=== PATIENT | male | born 1945 | race Caucasian/White ===

== ENCOUNTER 2021-02-02 13:47 | Inpatient (IN) | payer MEDICARE ==
[~2021-02-02] VITALS: Ht 175.3 cm; Wt 143.2 kg
[~2021-02-02 13:47] MED LIST: AMLO5TAB16 PO; ATOR40TA72 PO; FURO40TA4 PO; HYDR12.55 PO; LISI20TA28 PO; POTA10TA52 PO; WARF3TAB56 PO; WARF4TAB69 PO
[2021-02-02 16:23] LABS: BASOPHILS # (AUTO) 0.1 X10'3 (0-0.2); BASOPHILS % (AUTO) 0.9 % (0-1); EOSINOPHILS # (AUTO) 0.2 X10'3 (0-0.9); EOSINOPHILS % (AUTO) 1.4 % (0-6); LYMPHOCYTES # (AUTO) 1.1 X10'3 (1.1-4.8); LYMPHOCYTES % (AUTO) 8.5 % (21-51); MEAN PLATELET VOLUME 9.2 FL (7.4-10.4); MONOCYTES # (AUTO) 1.3 X10'3 (0-0.9); MONOCYTES % (AUTO) 10.8 % (2-12); NEUTROPHILS # (AUTO) 9.7 X10'3 (1.8-7.7); NEUTROPHILS % (AUTO) 78.4 % (42-75); PLATELET COUNT 211 X10'3 (140-440); WHITE BLOOD COUNT 12.3 X10'3 (4.5-11.0)
[2021-02-02 16:52] LABS: HEMATOCRIT 39.3 % (42.0-52.0); HEMOGLOBIN 12.5 g/dl (14.0-17.9); MEAN CORPUSCULAR HGB CONC 31.9 g/dL (33.0-36.5); MEAN CORPUSCULAR VOLUME 84.6 FL (78-98); RED BLOOD COUNT 4.65 X10'6 (4.70-6.10); RED CELL DISTRIBUTION WIDTH 17.6 % (11.5-14.5)
[2021-02-02 16:57] LABS: ALANINE AMINOTRANSFERASE 32 U/L (12-78); ALBUMIN/GLOBULIN RATIO 0.6 (1.1-1.5); ALKALINE PHOSPHATASE 188 IU/L (46-116); ANION GAP 6 (8-16); ASPARTATE AMINO TRANSFERASE 19 U/L (10-37); BILIRUBIN,TOTAL 0.7 MG/DL (0.1-1.0); BLOOD UREA NITROGEN 37 MG/DL (7-18); BUN/CREATININE RATIO 21.5 (5.4-32.0); CALCIUM 8.9 MG/DL (8.5-10.1); CHLORIDE 109 MMOL/L (99-107); CREATININE 1.72 MG/DL (0.60-1.10); GLUCOSE 139 MG/DL (70-104); SODIUM 148 MMOL/L (135-145); TOTAL CARBON DIOXIDE 32.8 MMOL/L (24-32); TOTAL PROTEIN 7.9 G/DL (6.4-8.2); eGFR 39 ML/MIN
[2021-02-02] MEDS ORDERED: furosemide 10 MG/1 ML 10ml inj IV ONE (17:15)
[2021-02-02 17:25] LABS: PLATELET ESTIMATE NORMAL
[2021-02-02 17:27] LABS: ANISOCYTOSIS 1+; BURR CELLS FEW; HYPOCHROMASIA 1+; LARGE PLATELETS FEW; POLYCHROMASIA FEW
[2021-02-02 17:28] LABS: ACANTHOCYTES FEW; ROULEAUX 2+; SCHISTOCYTES FEW
[2021-02-02] MEDS ORDERED: CARV3.122 PO (17:48)
[2021-02-02] MEDS ORDERED: POTA10TA PO (17:48)
[2021-02-02] MEDS ORDERED: ondansetron/PF 4mg/2ml inj IV PRN (17:55)
[2021-02-02] MEDS ORDERED: magnesium 4gm in 100ml NS 100 ML IV PRN (17:55)
[2021-02-02] MEDS ORDERED: PERFLUTREN PROTEIN-A MICROSPHR (Optison) 0.22 MG/ML 3ML VIAL IV ONE (17:55)
[2021-02-02] MEDS ORDERED: potassium Cl 20 mEq SR tablet PO PRN ×2 (17:55)
[2021-02-02] MEDS ORDERED: glucagon, human recombinant 1mg kit SUBCUT PRN (17:55)
[2021-02-02] MEDS ORDERED: bisacodyl 10mg suppository rectal RC PRN (17:55)
[2021-02-02] MEDS ORDERED: albuterol 2.5 MG/3 ML nebule NEB PRN (17:55)
[2021-02-02] MEDS ORDERED: potassium Cl 40MEQ/1/2NS 520ml 520 ML IV PRN ×2 (17:55)
[2021-02-02] MEDS ORDERED: acetaminophen 325mg tablet PO PRN ×2 (17:55)
[2021-02-02] MEDS ORDERED: dextrose 50%-water 50ml dispensing syringe IV PRN ×2 (17:55)
[2021-02-02] MEDS ORDERED: HYDROcodone/acetaminophen 5mg/325mg tablet PO PRN (17:55)
[2021-02-02] MEDS ORDERED: magnesium 2GM in 50ml NS 50 ML IV PRN (17:55)
[2021-02-02] MEDS ORDERED: HYDROcodone/acetaminophen 10/325mg tab PO PRN (17:55)
[2021-02-02] MEDS ORDERED: dextrose ORAL solution 15 GM/59 ML bottle PO PRN ×2 (17:55)
[2021-02-02] MEDS ORDERED: MESSAGE TO PHARMACY PO ONE (17:55)
[2021-02-02] MEDS ORDERED: albuterol 1.25 MG/3 ML (1/2 strength) nebule NEB PRN (17:55)
[2021-02-02] MEDS ORDERED: WARF1TAB83 PO (17:58)
[2021-02-02 18:28] LABS: HEMOGLOBIN A1C 7.4 % (4.5-6.2)
[2021-02-02] MEDS: K and/or MAG REPLACEMENT MC SCH (19:43)
[2021-02-02] MEDS: atorvastatin 20mg tablet PO SCH (20:31)
[2021-02-02] MEDS: levoFLOXACIN 750MG TABLET PO SCH (20:31)
[2021-02-02] MEDS: lisinopril 20mg tablet PO SCH (20:37)
[2021-02-02] MEDS: furosemide 10 MG/1 ML 10ml inj IV SCH (20:38)
[2021-02-02] MEDS: docusate sod 100mg capsule PO SCH (20:39)
[2021-02-02] MEDS: carVEDilol 3.125mg tablet PO SCH (20:39)
[2021-02-02] MEDS: HYDROchlorothiazide 12.5mg capsule PO SCH (20:39)
[2021-02-02] MEDS: enoxaparin 40mg/0.4ml syringe SQ SCH (20:40)
[2021-02-02] MEDS ORDERED: warfarin 7.5mg tablet PO ONE (21:00)
[2021-02-02] MEDS: insulin glargine (Lantus) pen - multi-dose SQ SCH (21:00)
[2021-02-03 03:04] LABS: BASOPHILS % (AUTO) 0.3 % (0-1); EOSINOPHILS # (AUTO) 0.1 X10'3 (0-0.9); EOSINOPHILS % (AUTO) 0.4 % (0-6); HEMATOCRIT 40.9 % (42.0-52.0); HEMOGLOBIN 11.9 g/dl (14.0-17.9); LYMPHOCYTES # (AUTO) 0.8 X10'3 (1.1-4.8); LYMPHOCYTES % (AUTO) 6.8 % (21-51); MEAN CORPUSCULAR HEMOGLOBIN 25.9 PG (27.0-31.0); MEAN CORPUSCULAR HGB CONC 29.2 g/dL (33.0-36.5); MEAN CORPUSCULAR VOLUME 88.8 FL (78-98); MEAN PLATELET VOLUME 9.1 FL (7.4-10.4); MONOCYTES # (AUTO) 1.2 X10'3 (0-0.9); MONOCYTES % (AUTO) 9.8 % (2-12); NEUTROPHILS # (AUTO) 10.1 X10'3 (1.8-7.7); NEUTROPHILS % (AUTO) 82.7 % (42-75); PLATELET COUNT 181 X10'3 (140-440); WHITE BLOOD COUNT 12.2 X10'3 (4.5-11.0)
[2021-02-03 03:23] LABS: ALANINE AMINOTRANSFERASE 28 U/L (12-78); ALBUMIN 2.7 G/DL (3.4-5.0); ALBUMIN/GLOBULIN RATIO 0.6 (1.1-1.5); ALKALINE PHOSPHATASE 170 IU/L (46-116); ANION GAP 5 (8-16); ASPARTATE AMINO TRANSFERASE 13 U/L (10-37); BILIRUBIN,TOTAL 0.8 MG/DL (0.1-1.0); BLOOD UREA NITROGEN 38 MG/DL (7-18); BUN/CREATININE RATIO 20.4 (5.4-32.0); CALCIUM 8.5 MG/DL (8.5-10.1); CHLORIDE 111 MMOL/L (99-107); CREATININE 1.86 MG/DL (0.60-1.10); GLUCOSE 151 MG/DL (70-104); MAGNESIUM 2.4 MG/DL (1.5-2.4); POTASSIUM 4.7 MMOL/L (3.5-5.1); SODIUM 149 MMOL/L (135-145); TOTAL CARBON DIOXIDE 33.3 MMOL/L (24-32); TOTAL PROTEIN 7.2 G/DL (6.4-8.2); eGFR 36 ML/MIN
--- NOTE | 2021-02-03 04:30 | NUR ---
PT PREFERS TO LAY FLAT, HOWEVER NOT VENTILATING WELL. PT MOUTH BREATHING, TACHYPNEA, SHALLOW, AND TWITCHING EXTREMITIES. MOVED PT FROM [facility] TO HOSPITAL BED. PT SPO2 MID 80S ON 4L NC. PLACED NC IN MOUTH, REPOSITIONED PT, AND PLACED ON 6L NC. PT SPO2 UP TO 91-94%. DR. LIM NOTIFIED AND ABG ORDERED.
[2021-02-03 05:10] LABS: ABG BASE EXCESS 2.9 mmol/L (-2.0-2.0); ABG HCO3 33.4 mmol/L (22.0-26.0); ABG OXYGEN SATURATION 93.3 % (94-97); ABG PCO2 (T) 87.6 mmHg (35.0-48.0); ALLEN'S TEST POSITIVE; FMetHb 0.3 % (0.0-1.5); FO2Hb 92.1 % (94-97); PATIENT TEMPERATURE 37.1; TOTAL HEMOGLOBIN 12.6 G/dl (14.0-18.0)
[2021-02-03 07:20] LABS: ABG BASE EXCESS 6.1 mmol/L (-2.0-2.0); ABG HCO3 35.5 mmol/L (22.0-26.0); ABG OXYGEN SATURATION 94.2 % (94-97); ABG PCO2 (T) 77.9 mmHg (35.0-48.0); ABG PO2 (T) 73.1 mmHg (75.0-100.0); ALLEN'S TEST POSITIVE; FCOHb 1.3 % (0.0-3.9); FMetHb 0.2 % (0.0-1.5); FO2Hb 92.8 % (94-97); RESPIRATORY RATE 20 b/min; TOTAL HEMOGLOBIN 12.6 G/dl (14.0-18.0)
[2021-02-03] MEDS: furosemide 10 MG/1 ML 10ml inj IV SCH (07:21)
[2021-02-03] MEDS: docusate sod 100mg capsule PO SCH ×2 (07:22→21:02)
[2021-02-03] MEDS: HYDROchlorothiazide 12.5mg capsule PO SCH ×2 (07:22→20:00)
[2021-02-03] MEDS: amLODIPine 5mg tablet PO SCH (07:23)
[2021-02-03] MEDS: lisinopril 20mg tablet PO SCH ×2 (07:24→21:01)
[2021-02-03] MEDS: carVEDilol 3.125mg tablet PO SCH (07:25)
--- NOTE | 2021-02-03 07:25 | NUR ---
Patient in room ED 3. I have received report from Ailyn COOK and had the opportunity to ask questions and assume patient care.
[2021-02-03] MEDS: K and/or MAG REPLACEMENT MC SCH ×2 (08:00→20:00)
[2021-02-03 08:20] VITALS: BP 148/59
[2021-02-03] MEDS ORDERED: albuterol 2.5 MG/3 ML nebule NEB PRN (08:20)
[2021-02-03] MEDS ORDERED: ipratropium/albuterol 3ml nebule NEB PRN (08:20)
[2021-02-03] MEDS: piperacillin/tazo 4.5gm/100ml 100 ML IV SCH ×2 (10:31→15:44)
[2021-02-03 11:00] VITALS: BP 121/42
[2021-02-03] MEDS: methylPREDNISolone sod succ/PF 40mg inj. IV SCH ×2 (12:55→20:50)
--- NOTE | 2021-02-03 15:08 | NUR ---
Noted pt with T2DM, well controlled for age with A1c 7.4%. DM education not warranted at this time. Will continue to follow. Addendum: 02/03/21 at [address] Amended: Links added.
--- NOTE | 2021-02-03 15:28 | NUR ---
Paged Dr. Tracy regarding HR PAGER ID: [phone] MESSAGE: [phone] Dana Stone. Heart rate 30s-50s. Hooking him up to zoll pads just incase. U [place]amar
[2021-02-03] MEDS ORDERED: piperacillin/tazo 4.5gm/100ml 100 ML IV SCH (16:00)
[2021-02-03 18:00] VITALS: BP 126/47
--- NOTE | 2021-02-03 18:34 | NUR ---
Problems reprioritized. Patient report given, questions answered & plan of care reviewed with Gracie RN. Patient stable at transfer of care.
[2021-02-03] MEDS ORDERED: furosemide 40mg/4ml inj IV SCH (20:00)
[2021-02-03] MEDS: enoxaparin 40mg/0.4ml syringe SQ SCH (20:50)
[2021-02-03] MEDS: lactobacillus rhamnosus 10,000 MMU CELLS/CAPSULE PO SCH (20:53)
[2021-02-03] MEDS: atorvastatin 20mg tablet PO SCH (20:53)
[2021-02-03] MEDS ORDERED: warfarin 5mg tablet PO ONE (21:00)
[2021-02-03] MEDS ORDERED: warfarin 1mg tablet PO ONE (21:00)
[2021-02-03] MEDS: insulin glargine (Lantus) pen - multi-dose SQ SCH (21:00)
[2021-02-03 22:00] VITALS: BP 125/48
[2021-02-04 02:00] VITALS: BP 123/48
[2021-02-04] MEDS: piperacillin/tazo 4.5gm/100ml 100 ML IV SCH ×3 (04:27→15:43)
[2021-02-04 06:00] VITALS: BP 137/61
--- NOTE | 2021-02-04 06:20 | NUR ---
Problems reprioritized. Patient report given, questions answered & plan of care reviewed with Kem.
--- NOTE | 2021-02-04 06:57 | NUR ---
Patient in room PCU 3014. I have received report from Gracie COOK and had the opportunity to ask questions and assume patient care.
[2021-02-04 07:17] LABS: BASOPHILS % (AUTO) 0.3 % (0-1); EOSINOPHILS % (AUTO) 0 % (0-6); LYMPHOCYTES # (AUTO) 0.5 X10'3 (1.1-4.8); MEAN PLATELET VOLUME 9.3 FL (7.4-10.4); MONOCYTES # (AUTO) 0.2 X10'3 (0-0.9); NEUTROPHILS # (AUTO) 9.5 X10'3 (1.8-7.7); NEUTROPHILS % (AUTO) 92.7 % (42-75); PLATELET COUNT 183 X10'3 (140-440); RED BLOOD COUNT 4.63 X10'6 (4.70-6.10); RED CELL DISTRIBUTION WIDTH 18.8 % (11.5-14.5); WHITE BLOOD COUNT 10.3 X10'3 (4.5-11.0)
[2021-02-04 07:30] LABS: ALANINE AMINOTRANSFERASE 27 U/L (12-78); ALBUMIN 2.5 G/DL (3.4-5.0); ALBUMIN/GLOBULIN RATIO 0.6 (1.1-1.5); ALKALINE PHOSPHATASE 163 IU/L (46-116); ANION GAP 5 (8-16); ASPARTATE AMINO TRANSFERASE 13 U/L (10-37); BILIRUBIN,TOTAL 0.6 MG/DL (0.1-1.0); BLOOD UREA NITROGEN 50 MG/DL (7-18); BUN/CREATININE RATIO 26.2 (5.4-32.0); CALCIUM 8.6 MG/DL (8.5-10.1); CHLORIDE 109 MMOL/L (99-107); CREATININE 1.91 MG/DL (0.60-1.10); GLUCOSE 198 MG/DL (70-104); MAGNESIUM 2.4 MG/DL (1.5-2.4); POTASSIUM 4.1 MMOL/L (3.5-5.1); SODIUM 148 MMOL/L (135-145); eGFR 35 ML/MIN
[2021-02-04] MEDS: amLODIPine 5mg tablet PO SCH (07:44)
[2021-02-04] MEDS: HYDROchlorothiazide 12.5mg capsule PO SCH ×2 (07:44→19:46)
[2021-02-04] MEDS: lactobacillus rhamnosus 10,000 MMU CELLS/CAPSULE PO SCH ×2 (07:44→19:46)
[2021-02-04] MEDS: lisinopril 20mg tablet PO SCH ×2 (07:44→19:51)
[2021-02-04] MEDS: methylPREDNISolone sod succ/PF 40mg inj. IV SCH ×3 (07:45→19:56)
[2021-02-04] MEDS: levoFLOXACIN 750MG TABLET PO SCH (07:45)
[2021-02-04] MEDS: docusate sod 100mg capsule PO SCH ×2 (07:45→19:46)
[2021-02-04] MEDS ORDERED: furosemide 40mg/4ml inj IV SCH (08:00)
[2021-02-04] MEDS: K and/or MAG REPLACEMENT MC SCH ×2 (08:00→20:00)
[2021-02-04 08:20] LABS: HEMOGLOBIN 12.5 g/dl (14.0-17.9)
[2021-02-04 08:21] LABS: HEMATOCRIT 39.1 % (42.0-52.0); MEAN CORPUSCULAR HEMOGLOBIN 26.9 PG (27.0-31.0)
[2021-02-04 09:16] LABS: ABG BASE EXCESS 7.1 mmol/L (-2.0-2.0); ABG HCO3 35.7 mmol/L (22.0-26.0); ABG OXYGEN SATURATION 93.6 % (94-97); ABG PCO2 (T) 71.9 mmHg (35.0-48.0); ABG PO2 (T) 74.8 mmHg (75.0-100.0); ALLEN'S TEST POSITIVE; FCOHb 0.8 % (0.0-3.9); FLOW 2 L/min; FMetHb 0.2 % (0.0-1.5); FO2Hb 92.7 % (94-97); TOTAL HEMOGLOBIN 12.7 G/dl (14.0-18.0)
[2021-02-04 11:00] VITALS: BP 130/52
[2021-02-04] MEDS: insulin Lispro (HumaLOG) vial - multi-dose SQ SCH ×2 (13:45→18:46)
[2021-02-04 15:00] VITALS: BP 130/62
[2021-02-04 18:00] VITALS: BP 136/55
--- NOTE | 2021-02-04 18:28 | NUR ---
Problems reprioritized. Patient report given, questions answered & plan of care reviewed with Ciara COOK. Patient stable a transfer of care.
--- NOTE | 2021-02-04 18:29 | NUR ---
Patient in room PCU 3014. I have received report from JALEN COOK and had the opportunity to ask questions and assume patient care.
[2021-02-04] MEDS: enoxaparin 40mg/0.4ml syringe SQ SCH (19:52)
[2021-02-04] MEDS: atorvastatin 20mg tablet PO SCH (19:56)
[2021-02-04] MEDS ORDERED: warfarin 3mg tablet PO ONE (21:00)
[2021-02-04] MEDS: insulin glargine (Lantus) pen - multi-dose SQ SCH (21:19)
[2021-02-04 22:00] VITALS: BP 143/55
[2021-02-05] MEDS: piperacillin/tazo 4.5gm/100ml 100 ML IV SCH ×2 (00:08→07:58)
[2021-02-05 02:00] VITALS: BP 134/59
[2021-02-05 06:00] VITALS: BP 136/68
--- NOTE | 2021-02-05 06:14 | NUR ---
Problems reprioritized. Patient report given, questions answered & plan of care reviewed with Rosa COOK.
[2021-02-05 06:43] LABS: BASOPHILS % (AUTO) 0.1 % (0-1); EOSINOPHILS % (AUTO) 0 % (0-6); HEMATOCRIT 40.1 % (42.0-52.0); HEMOGLOBIN 12.3 g/dl (14.0-17.9); LYMPHOCYTES # (AUTO) 0.7 X10'3 (1.1-4.8); LYMPHOCYTES % (AUTO) 3.7 % (21-51); MEAN CORPUSCULAR HEMOGLOBIN 26.5 PG (27.0-31.0); MEAN CORPUSCULAR HGB CONC 30.7 g/dL (33.0-36.5); MEAN CORPUSCULAR VOLUME 86.2 FL (78-98); MEAN PLATELET VOLUME 9.1 FL (7.4-10.4); MONOCYTES # (AUTO) 0.5 X10'3 (0-0.9); MONOCYTES % (AUTO) 2.8 % (2-12); NEUTROPHILS # (AUTO) 17.7 X10'3 (1.8-7.7); NEUTROPHILS % (AUTO) 93.4 % (42-75); PLATELET COUNT 193 X10'3 (140-440); RED BLOOD COUNT 4.65 X10'6 (4.70-6.10); RED CELL DISTRIBUTION WIDTH 18.8 % (11.5-14.5); WHITE BLOOD COUNT 18.9 X10'3 (4.5-11.0)
[2021-02-05 07:10] LABS: PLATELET ESTIMATE NORMAL; POLYCHROMASIA FEW
[2021-02-05 07:11] LABS: ACANTHOCYTES FEW; ANISOCYTOSIS 2+; BURR CELLS 1+; ELLIPTOCYTES 1+; ROULEAUX 1+; SCHISTOCYTES FEW
[2021-02-05 07:14] LABS: ALANINE AMINOTRANSFERASE 29 U/L (12-78); ALBUMIN 2.7 G/DL (3.4-5.0); ALBUMIN/GLOBULIN RATIO 0.6 (1.1-1.5); ALKALINE PHOSPHATASE 152 IU/L (46-116); ANION GAP 5 (8-16); ASPARTATE AMINO TRANSFERASE 16 U/L (10-37); BILIRUBIN,TOTAL 0.5 MG/DL (0.1-1.0); BLOOD UREA NITROGEN 53 MG/DL (7-18); BUN/CREATININE RATIO 27.2 (5.4-32.0); CALCIUM 8.8 MG/DL (8.5-10.1); CHLORIDE 106 MMOL/L (99-107); CREATININE 1.95 MG/DL (0.60-1.10); GLUCOSE 190 MG/DL (70-104); MAGNESIUM 2.4 MG/DL (1.5-2.4); POTASSIUM 3.6 MMOL/L (3.5-5.1); SODIUM 147 MMOL/L (135-145); TOTAL CARBON DIOXIDE 36.4 MMOL/L (24-32); TOTAL PROTEIN 7.2 G/DL (6.4-8.2); eGFR 34 ML/MIN
[2021-02-05] MEDS ORDERED: furosemide 20 MG/2 ML vial IV SCH (08:00)
[2021-02-05] MEDS: K and/or MAG REPLACEMENT MC SCH (08:00)
[2021-02-05] MEDS: lactobacillus rhamnosus 10,000 MMU CELLS/CAPSULE PO SCH (08:02)
[2021-02-05] MEDS: HYDROchlorothiazide 12.5mg capsule PO SCH (08:02)
[2021-02-05] MEDS: docusate sod 100mg capsule PO SCH (08:02)
[2021-02-05] MEDS: lisinopril 20mg tablet PO SCH (08:02)
[2021-02-05] MEDS: methylPREDNISolone sod succ/PF 40mg inj. IV SCH ×2 (08:02→12:40)
[2021-02-05] MEDS: amLODIPine 5mg tablet PO SCH (08:03)
[2021-02-05] MEDS ORDERED: furosemide 40mg/4ml inj IV SCH (08:45)
[2021-02-05] MEDS ORDERED: FURO40TA4 PO (09:59)
[2021-02-05] MEDS: insulin Lispro (HumaLOG) vial - multi-dose SQ SCH (10:21)
[2021-02-05 11:00] VITALS: BP 136/68
--- NOTE | 2021-02-05 11:36 | NUR ---
O2 Sat at rest on room air:_86__% If below 89%: Recovery O2 Sat at rest on __2_LPM:__91_% via____NC (mask/nasal cannula, etc..) No further documentation is necessary.
[2021-02-05 15:00] VITALS: BP 101/62
--- NOTE | 2021-02-05 16:57 | NUR ---
Pt stable for D/C Pt stable for D/C per MD orders. All D/C ppwk was reviewed with patient in detail. All RX highlighted and education on importance of following up with PCP within 1 week. O2 was delivered and education was provided to the patient. Pt verbalized understanding and was able to show me as well. PIV was removed from Right AC - pt tolerated well. All personal belongings were sent with the patient including his wallet, cell phone and clothes. Pt advised that his cane was left in his car before he was admitted. Pending grandson to come oyster picker pt.
--- NOTE | 2021-02-05 17:13 | NUR ---
Pt was wheeled out by nursing staff to private vehicle where grandson was waiting. All personal belongings with patient.
== END 2021-02-05 17:20 | disposition home health service (06) | DRG 189 ==
LOC: ER 13:47 → ED HOLD 17:58 → PCU 3S 02-03 08:15
PROVIDERS: ADMIT Family Medicine; ATTEND Family Medicine
PROC: 5A09457 Assistance with Respiratory Ventilation, 24-96 Consecutive Hours, Continuous Positive Airway Pressure (ICD-10-PCS; principal; 2021-02-03)
DX: J96.01 Acute respiratory failure with hypoxia (principal); I50.43 Acute on chronic combined systolic (congestive) and diastolic (congestive) heart failure; I13.0 Hypertensive heart and chronic kidney disease with heart failure and stage 1 through stage 4 chronic kidney disease, or unspecified chronic kidney disease; J44.1 Chronic obstructive pulmonary disease with (acute) exacerbation; Z68.42 Body mass index [BMI] 45.0-49.9, adult; N17.9 Acute kidney failure, unspecified; J96.02 Acute respiratory failure with hypercapnia; E78.5 Hyperlipidemia, unspecified; D72.829 Elevated white blood cell count, unspecified; Z20.822 Contact with and (suspected) exposure to COVID-19; I48.0 Paroxysmal atrial fibrillation; Z96.652 Presence of left artificial knee joint; E66.01 Morbid (severe) obesity due to excess calories; I87.2 Venous insufficiency (chronic) (peripheral); I25.10 Atherosclerotic heart disease of native coronary artery without angina pectoris; I27.20 Pulmonary hypertension, unspecified; R00.1 Bradycardia, unspecified; E11.22 Type 2 diabetes mellitus with diabetic chronic kidney disease; N18.30 Chronic kidney disease, stage 3 unspecified; T14.8XXA Other injury of unspecified body region, initial encounter; X58.XXXA Exposure to other specified factors, initial encounter; Z77.22 Contact with and (suspected) exposure to environmental tobacco smoke (acute) (chronic); Z79.899 Other long term (current) drug therapy; Z95.1 Presence of aortocoronary bypass graft; Z87.891 Personal history of nicotine dependence; Z79.84 Long term (current) use of oral hypoglycemic drugs; Y93.89 Activity, other specified; Y92.89 Other specified places as the place of occurrence of the external cause; Y99.8 Other external cause status; Z79.01 Long term (current) use of anticoagulants
CPT/HCPCS: 36415; 36600; 71045; 80053; 82803; 82948; 83036; 83605; 83735; 83880; 84484; 85008; 85018; 85025; 85610; 87040; 87635; 93005; 93306; 94660; 94760; 96374; 97116; 97162; 97530; 99285; C9803; G0378; J1650; J1815; J1940; J2543; J2920

== ENCOUNTER 2022-05-15 18:25 | Emergency (ER) | payer MEDICARE ==
[~2022-05-15] VITALS: Ht 175.3 cm; Wt 145.4 kg
[~2022-05-15 18:25] MED LIST changes: +CARV3.122 PO; +POTA10TA PO; -POTA10TA52 PO; +WARF1TAB83 PO; -WARF3TAB56 PO; -WARF4TAB69 PO
[2022-05-15 20:05] LABS: BASOPHILS % (AUTO) 0.4 % (0-1); EOSINOPHILS # (AUTO) 0.1 X10'3 (0-0.9); EOSINOPHILS % (AUTO) 1.1 % (0-6); HEMOGLOBIN 11.4 g/dl (14.0-17.9); LYMPHOCYTES # (AUTO) 0.7 X10'3 (1.1-4.8); LYMPHOCYTES % (AUTO) 6.7 % (21-51); MEAN CORPUSCULAR HEMOGLOBIN 27.8 PG (27.0-31.0); MEAN CORPUSCULAR HGB CONC 31.5 g/dL (33.0-36.5); MEAN CORPUSCULAR VOLUME 88.2 FL (78-98); MEAN PLATELET VOLUME 9.9 FL (7.4-10.4); MONOCYTES # (AUTO) 1.1 X10'3 (0-0.9); MONOCYTES % (AUTO) 10.6 % (2-12); NEUTROPHILS # (AUTO) 8.4 X10'3 (1.8-7.7); NEUTROPHILS % (AUTO) 81.2 % (42-75); PLATELET COUNT 127 X10'3 (140-440); RED BLOOD COUNT 4.08 X10'6 (4.70-6.10); RED CELL DISTRIBUTION WIDTH 17.8 % (11.5-14.5); WHITE BLOOD COUNT 10.4 X10'3 (4.5-11.0)
[2022-05-15 20:27] LABS: ALANINE AMINOTRANSFERASE 23 U/L (12-78); ALBUMIN 2.6 G/DL (3.4-5.0); ALBUMIN/GLOBULIN RATIO 0.6 (1.1-1.5); ALKALINE PHOSPHATASE 144 IU/L (46-116); ANION GAP 0 (8-16); ASPARTATE AMINO TRANSFERASE 27 U/L (10-37); BILIRUBIN,TOTAL 0.6 MG/DL (0.1-1.0); BLOOD UREA NITROGEN 26 MG/DL (7-18); BUN/CREATININE RATIO 19.8 (5.4-32.0); CALCIUM 8.8 MG/DL (8.5-10.1); CHLORIDE 102 MMOL/L (99-107); CREATININE 1.31 MG/DL (0.60-1.10); GLUCOSE 170 MG/DL (70-104); POTASSIUM 3.8 MMOL/L (3.5-5.1); SODIUM 142 MMOL/L (135-145); TOTAL CARBON DIOXIDE 39.6 MMOL/L (24-32); eGFR 53 ML/MIN
--- NOTE | 2022-05-15 20:29 | NUR ---
Pt has an olderly spouse with Alzheimer's and he has been the primary caregiver. His son is currently taking care of his while he is in the hospital. Pt has CHF exacerbation and +4 pitting edema to Kenneth extremities to groin. It has been difficult for him to ambulate for the past 4 days.
[2022-05-15 23:00] VITALS: BP 149/70
[2022-05-16] MEDS ORDERED: furosemide 10 MG/1 ML 10ml inj IV ONE (01:20)
== END 2022-05-16 02:25 | disposition home or self-care (01) ==
LOC: ER 18:26
DX: I50.9 Heart failure, unspecified (principal); E11.9 Type 2 diabetes mellitus without complications; Z79.899 Other long term (current) drug therapy
CPT/HCPCS: 36415; 71045; 80053; 83880; 84484; 85025; 93005; 96374; 99285; J1940